=== PATIENT | female | born 1995 | race Hispanic/Latino ===

== ENCOUNTER 2021-02-25 16:13 | Inpatient (IN) | payer MEDICAID, OTHER ==
[~2021-02-25] VITALS: Ht 154.9 cm; Wt 65.8 kg
[2021-02-25] MEDS ORDERED: ZOSYN 3.375GM +NS 50ML IV SCH (17:00)
[2021-02-25] MEDS ORDERED: MORPHINE 2 MG SYG IVP ONE (17:00)
[2021-02-25 17:17] LABS: BASOPHILS % (AUTO) 0.7 % (0.0-5.0); EOSINOPHILS % (AUTO) 1.9 % (0.0-8.0); HEMATOCRIT 41.2 % (36-48); LYMPHOCYTES % (AUTO) 24.3 % (21.0-51.0); MEAN CORPUSCULAR HEMOGLOBIN 28.9 pg (27.0-33.0); MEAN CORPUSCULAR HGB CONC 33.7 g/dL (32.0-36.0); MEAN CORPUSCULAR VOLUME 85.7 fL (79-99); MONOCYTES % (AUTO) 8.8 % (3.0-13.0); PLATELET COUNT (AUTO) 372 K/uL (130-400); RED BLOOD CELL COUNT(AUTO) 4.81 MIL/uL (4.00-5.50); RED CELL DISTRIBUTION WIDTH 12.8 % (11.0-15.5); WHITE BLOOD COUNT (AUTO) 11.8 K/uL (4.8-10.8)
[2021-02-25 17:22] LABS: APPEARANCE,URINE Clear (CLEAR); BILIRUBIN,URINE Negative (NEGATIVE); COLOR,URINE Yellow (YELLOW); GLUCOSE, URINE (UA) Negative (NEGATIVE); KETONES,URINE Negative (NEGATIVE); LEUKOCYTE ESTERASE ,URINE Negative (NEGATIVE); NITRATE,URINE Negative (NEGATIVE); OCCULT BLOOD,URINE Negative (NEGATIVE); PROTEIN,URINE Negative (NEGATIVE)
[2021-02-25 17:33] LABS: HCG,QUAL RESULT NEGATIVE (NEGATIVE)
[2021-02-25 17:34] LABS: CREATININE 0.9 mg/dL (0.5-1.5); POTASSIUM 3.6 mmol/L (3.5-5.1)
[2021-02-25 17:38] LABS: ALBUMIN 3.8 g/dL (3.5-5.0); BILIRUBIN,TOTAL 0.2 mg/dL (0.2-1.0); CRP QUANTITATIVE 25.7 mg/L (0.00-9.0); TOTAL PROTEIN, SERUM 8.4 g/dL (6.0-8.3)
[2021-02-25] MEDS ORDERED: 0.9%NACL 50ML 50 ML IV ONE (17:43)
[2021-02-25 18:50] LABS: INR 0.99 (0.85-1.15); PROTHROMBIN TIME 10.8 SEC (9.6-11.6)
[2021-02-25 18:51] LABS: PARTIAL THROMBOPLASTIN TIME 29.1 SEC (26.3-35.5)
[2021-02-25] MEDS ORDERED: NITROGLYCERIN 0.4 MG SL TAB SL PRN (19:00)
[2021-02-25] MEDS ORDERED: ONDANSETRON 4MG INJ IV PRN (19:00)
[2021-02-25] MEDS ORDERED: ACETAMINOPHEN 325 MG TAB PO PRN ×2 (19:00)
[2021-02-25] MEDS ORDERED: VANCOMYCIN PROTOCOL PER PHARMACY IV SCH (19:00)
[2021-02-25] MEDS ORDERED: VANCOMYCIN 1.25GM/NS 250ML IVPB ONE ×2 (19:30)
[2021-02-25] MEDS: FAMOTIDINE 20MG TAB PO SCH (23:00)
[2021-02-26] VITALS (24 sets, daily range): BP systolic 99–127; BP diastolic 52–86
[2021-02-26] MEDS: ZOSYN 3.375GM +NS 50ML IV SCH ×3 (01:41→19:49)
[2021-02-26] MEDS: VANCOMYCIN 750MG VIAL IVPB SCH ×3 (03:10→23:00)
[2021-02-26 07:44] LABS: ALBUMIN 3.4 g/dL (3.5-5.0); BILIRUBIN,TOTAL 0.4 mg/dL (0.2-1.0); CREATININE 0.9 mg/dL (0.5-1.5); MAGNESIUM 2.3 mg/dL (1.80-2.40); TOTAL PROTEIN, SERUM 7.6 g/dL (6.0-8.3)
[2021-02-26 07:55] LABS: BASOPHILS % (AUTO) 0.6 % (0.0-5.0); EOSINOPHILS % (AUTO) 2.5 % (0.0-8.0); HEMATOCRIT 40.2 % (36-48); LYMPHOCYTES % (AUTO) 26.7 % (21.0-51.0); MEAN CORPUSCULAR HEMOGLOBIN 28.7 pg (27.0-33.0); MEAN CORPUSCULAR HGB CONC 33.1 g/dL (32.0-36.0); MEAN CORPUSCULAR VOLUME 86.6 fL (79-99); MONOCYTES % (AUTO) 9.4 % (3.0-13.0); NEUTROPHILS % (AUTO) 60.2 % (40.0-77.0); PLATELET COUNT (AUTO) 338 K/uL (130-400); RED BLOOD CELL COUNT(AUTO) 4.64 MIL/uL (4.00-5.50); RED CELL DISTRIBUTION WIDTH 12.9 % (11.0-15.5); WHITE BLOOD COUNT (AUTO) 10.8 K/uL (4.8-10.8)
[2021-02-26] MEDS: FAMOTIDINE 20MG TAB PO SCH ×2 (09:44→20:45)
[2021-02-26] MEDS: ENOXAPARIN SODIUM 30 MG/0.3 ML SQ SCH (09:44)
[2021-02-26] MEDS ORDERED: ONDANSETRON 4MG INJ ONE (16:06)
[2021-02-26] MEDS ORDERED: ROCURONIUM 10MG/1ML SYR 10 MG/ML ML ONE (16:06)
[2021-02-26] MEDS ORDERED: LIDOCAINE PF 100MG/5ML (2%) SYRINGE 5ML ONE (16:06)
[2021-02-26] MEDS ORDERED: PROPOFOL 10 MG/ML 20ML VIAL IV ONE (16:06)
[2021-02-26] MEDS ORDERED: FENTANYL CITRATE PF 50 MCG/1 ML 2ML VIAL ONE ×2 (16:06→16:07)
[2021-02-26] MEDS ORDERED: MIDAZOLAM HCL 1 MG/ML 2ML VIAL ONE (16:07)
[2021-02-26] MEDS ORDERED: MEPERIDINE-PF 25 MG/ML SYG ONE (18:30)
[2021-02-27] MEDS: ZOSYN 3.375GM +NS 50ML IV SCH ×3 (03:01→18:08)
[2021-02-27 03:42] VITALS: BP 103/65
[2021-02-27] MEDS: VANCOMYCIN 750MG VIAL IVPB SCH ×3 (07:00→23:05)
[2021-02-27 07:41] VITALS: BP 103/64
[2021-02-27] MEDS: ENOXAPARIN SODIUM 30 MG/0.3 ML SQ SCH (09:09)
[2021-02-27] MEDS: FAMOTIDINE 20MG TAB PO SCH ×2 (09:20→23:04)
[2021-02-27 11:24] VITALS: BP 102/69
[2021-02-27 16:26] VITALS: BP 110/72
[2021-02-27 19:39] VITALS: BP 112/78
[2021-02-27 23:10] VITALS: BP 115/77
[2021-02-28] MEDS: ZOSYN 3.375GM +NS 50ML IV SCH ×3 (02:09→20:01)
[2021-02-28 04:05] VITALS: BP 98/58
[2021-02-28 06:25] LABS: BASOPHILS % (AUTO) 0.4 % (0.0-5.0); EOSINOPHILS % (AUTO) 2.2 % (0.0-8.0); LYMPHOCYTES % (AUTO) 21.6 % (21.0-51.0); MEAN CORPUSCULAR HEMOGLOBIN 28.4 pg (27.0-33.0); MEAN CORPUSCULAR HGB CONC 33.2 g/dL (32.0-36.0); MEAN CORPUSCULAR VOLUME 85.5 fL (79-99); MONOCYTES % (AUTO) 9.7 % (3.0-13.0); NEUTROPHILS % (AUTO) 65.6 % (40.0-77.0); PLATELET COUNT (AUTO) 337 K/uL (130-400); RED BLOOD CELL COUNT(AUTO) 4.33 MIL/uL (4.00-5.50); RED CELL DISTRIBUTION WIDTH 12.8 % (11.0-15.5); WHITE BLOOD COUNT (AUTO) 11.7 K/uL (4.8-10.8)
[2021-02-28 06:38] LABS: CREATININE 0.9 mg/dL (0.5-1.5); CRP QUANTITATIVE 35.1 mg/L (0.00-9.0); POTASSIUM 3.5 mmol/L (3.5-5.1)
[2021-02-28 07:15] VITALS: BP 102/65
[2021-02-28 07:35] LABS: ERYTHROCYTE SEDIMENTATION RATE 20 MM/HR (0-20)
[2021-02-28] MEDS: VANCOMYCIN 750MG VIAL IVPB SCH ×3 (08:08→17:44)
[2021-02-28] MEDS: FAMOTIDINE 20MG TAB PO SCH ×2 (09:00→21:03)
[2021-02-28] MEDS: ENOXAPARIN SODIUM 30 MG/0.3 ML SQ SCH (09:01)
[2021-02-28 11:27] VITALS: BP 108/66
[2021-02-28 16:07] VITALS: BP 115/69
[2021-02-28] MEDS ORDERED: PHARMACY COMMUNICATION MISC SCH (19:00)
[2021-02-28 20:20] VITALS: BP 115/77
[2021-02-28 23:50] VITALS: BP 116/77
[2021-03-01] MEDS: VANCOMYCIN 750MG VIAL IVPB SCH ×2 (01:55→10:28)
[2021-03-01] MEDS: ZOSYN 3.375GM +NS 50ML IV SCH ×2 (03:23→11:57)
[2021-03-01 03:40] VITALS: BP 104/66
[2021-03-01 07:09] VITALS: BP 100/58
[2021-03-01] MEDS: ENOXAPARIN SODIUM 30 MG/0.3 ML SQ SCH (08:32)
[2021-03-01] MEDS: FAMOTIDINE 20MG TAB PO SCH (08:39)
[2021-03-01 11:11] VITALS: BP 108/72
[2021-03-01 16:07] VITALS: BP 117/74
[2021-03-01] MEDS ORDERED: AMOX-429 PO (17:27)
[2021-03-01] MEDS ORDERED: DOXY100C5 PO (17:27)
[2021-03-28] MEDS ORDERED: SULF1TAB41 PO (14:43)
[2021-03-30] MEDS ORDERED: DOXY100C5 PO (13:23)
[2021-03-30] MEDS ORDERED: AMOX500C2 PO (13:23)
[2021-03-30] MEDS ORDERED: ACET1TAB25 PO (14:18)
== END 2021-03-01 18:20 | disposition home or self-care (01) | DRG 601 ==
LOC: EDH 16:13 → EDHIP 16:14 → UNDOADMIN 18:40 → WSH 02-26 03:45 → EDHIP 02-26 03:45
PROVIDERS: ADMIT Internal Medicine; ATTEND Internal Medicine
PROC: 0H9T3ZZ Drainage of Right Breast, Percutaneous Approach (ICD-10-PCS; principal; 2021-02-26 18:15)
DX: N61.1 Abscess of the breast and nipple (principal); Z20.822 Contact with and (suspected) exposure to COVID-19; D72.829 Elevated white blood cell count, unspecified
CPT/HCPCS: 36415; 71045; 76641; 80048; 80053; 80202; 81003; 81025; 83036; 83605; 83735; 84145; 84443; 85025; 85610; 85651; 85730; 86140; 87040; 87070; 87076; 87205; 87635; 87641; 93005; C9803; G0378; J1650; J2001; J2175; J2250; J2405; J2543; J2704; J3010; J3370; J7050; J7120